=== PATIENT | male | born 1975 | race Caucasian/White ===

== ENCOUNTER 2025-06-11 18:27 | Emergency (ER) | payer OTHER, SELFPAY ==
[2025-06-11 18:57] VITALS: BP 128/100; PULSE 123; TEMP 36.7; O2SAT 98; BMI 39.2
--- NOTE | 2025-06-11 22:23 | XR_ITS ---
[facility] [place] [address] Patient Name: TOBIAS DÍAZ MRN: [id number] date: 1975 Sex: M Assigned Patient Location: ED.MAIN Current Patient Location: ED.MAIN Accession/Order Number: [id number] Exam Date: 06/11/2025 22:30 Report Date: 06/11/2025 22:47 At the request of: TAD BASSETT DO Procedure: XR lumbar spine 2-3V XR lumbar spine 2-3V 06/11/2025 10:39 PM SIGNS AND SYMPTOMS: ^back pain, history of fusion PROTOCOLS: Frontal and lateral graphs of the lumbar spine COMPARISON: None FINDINGS: The alignment, development and bony structures are normal. There is no fracture or destructive lesion. There is intervertebral fusion at L5-S1. There is mild disc height loss at L3-L4 and L4-L5.. Degenerative changes are noted in the sacroiliac joints. There is evidence of prior cholecystectomy in the right upper quadrant. XR/XR lumbar spine 2-3V IMPRESSION: No fracture or dislocation. There is fusion across the L5-S1 intervertebral disc space. Degenerative changes are noted as above. Impression dictated by: Jared Mckenzie M.D. 06/11/2025 10:47 PM Dictation Location: [place] [address] Electronically authenticated by: [id number] Y Date: 06/11/2025 22:47
[2025-06-11] MEDS: LIDOCAINE 5% PATCH 1 PATCH TOPICAL (22:40)
[2025-06-11] MEDS: KETOROLAC TROMETHAMINE 30 MG/ML VIAL IM (22:40)
[2025-06-11] MEDS: METHOCARBAMOL 500 MG TABLET PO (22:40)
[2025-06-11] MEDS: HYDROCODONE/ACET 5-325 MG TABLET 2 TAB PO (22:40)
[2025-06-11] MEDS: OXYCODONE HCL 5 MG TABLET PO (23:30)
--- NOTE | 2025-06-11 23:32 | ED_ITS ---
HPI HPI - General Adult General Chief complaint: Back Pain/Injury Stated complaint: Pain Left leg Time Seen by Provider: 06/11/25 21:57 Source: patient Source information: Pain in back, hip and left leg when changing positions. Increasing pain over the last week. Mode of arrival: walk-in Limitations: no limitations History of Present Illness HPI narrative: Patient is a 49-year-old male presenting to the emergency department for evaluation of left lower back pain. Patient states his symptoms began 2 weeks ago. He was initially treating the pain with naproxen, however over the last 24 hours, his pain has gotten worse. He states for the last 5 hours he has been in excruciating pain. He states the pain is located left lower part of his back and radiates down the entire leg into his toes. He states it feels like a sharp pain with numbness as tingling in the toes. He states he feels like it is a pinched nerve . He states that laying in certain positions makes the symptoms better, and standing up and walking exacerbates the pain. States he has a history of lumbar fusion 20 years ago. He denies any falls or injuries. No history of IV drug use. No fevers or chills. No loss of bladder/bowel function. No weakness in the lower extremities. No loss of sensation in the bilateral lower extremities. Related Data Previous Rx's ?Medication ?Instructions ?Recorded oxycodone-acetaminophen 5 mg-325 1 tab PO Q8H PRN pain #10 tabs 06/11/25 mg tablet Allergies Allergy/AdvReac Type Severity Reaction Status Date / Time No Known Drug Allergies Allergy Verified 06/11/25 22:29 Opioid HPI Opioid Management Most Recent Opioid Data: Last Pain Scale 8 Today, 22:40 Last MAR Pain Assessment Today, 22:40 Review of Systems ROS Status of ROS 10 or more systems reviewed and unremark able except as noted in history and below PFSH PFSH Social History Little interest or pleasure in doing things: not at all Feeling down, depressed, or hopeless: not at all Exam Narrative Exam Narrative: CONSTITUTIONAL: Patient is lying supine in the stretcher, slightly favoring the right side, appears to be in significant pain/distress SKIN: Was warm and dry, there are no overlying skin changes or rashes in the lower back. EYES: Sclerae white. EARS, NOSE, THROAT: Moist oral mucosa. RESPIRATORY: Nonlabored respirations. CARDIOVASCULAR: Normal rate and regular rhythm. 2+ DP pulses bilaterally GASTROINTESTINAL: Abdomen is nondistended. MUSCULOSKELETAL: Minimal tenderness to palpation throughout the paraspinal muscles of the left lower back. No midline L spine tenderness. Full ROM in the bilateral lower extremities. Postive straight leg raise test on the left. Positive crossed straight leg raise test. No peripheral edema. NEUROLOGIC: Patient is awake and alert. Equal strength and sensation to light touch in the bilateral lower extremities. Constitutional Vital Signs, click to edit/add: Last Vital Signs Temp 98.1 F 06/11/25 18:57 Pulse 123 H 06/11/25 18:57 Resp 18 06/11/25 18:57 BP 128/100 H 06/11/25 18:57 Pulse Ox 98 06/11/25 18:57 O2 Del Method Room Air 06/11/25 18:57 Course Vital Signs Vital signs: Vital Signs Temperature 98.1 F 06/11/25 18:57 Pulse Rate 123 H 06/11/25 18:57 Respiratory Rate 18 06/11/25 18:57 Blood Pressure 128/100 H 06/11/25 18:57 Pulse Oximetry 98 06/11/25 18:57 Oxygen Delivery Method Room Air 06/11/25 18:57 Temperature 98.1 F 06/11/25 18:57 Pulse Rate 123 H 06/11/25 18:57 Respiratory Rate 18 06/11/25 18:57 Blood Pressure 128/100 H 06/11/25 18:57 Pulse Oximetry 98 06/11/25 18:57 Oxygen Delivery Method Room Air 06/11/25 18:57 Medical Decision Making [facility] Narrative Medical decision making narrative: Patient is a 49-year-old male presenting to the emergency department with a 2- week history of left-sided lower back pain radiating down his left leg, acutely worsening over the last 5 hours. Patient's vital signs were significant for tachycardia, likely related to his acute pain. Otherwise, vitals were within normal limits. He is afebrile and hemodynamically stable. Examination as noted above, however was notable for positive straight leg raise test on the left. He has good strength, sensation, and distal pulses/perfusion in the lower extremities. Extremities are neurovascularly intact. Differential diagnose includes left-sided lumbar radiculopathy, musculoskeletal pain, and possibly issues with prior hardware from lumbar fusion 20 years. X- rays of the lumbar spine were obtained to evaluate the hardware. There are no findings that would be suggestive of cauda equina syndrome. No history of IV drug use, fevers, midline vertebral tenderness to suggest spinal epidural abscess. No recent injuries to suggest fracture or dislocations. No history of cancer to suggest metastatic disease. Patient will be treated symptomatically with IM ketorolac, oral Cushing, oral Robaxin, and lidocaine patch. X-rays of the lumbar spine independently reviewed and interpreted by myself and radiology demonstrated no fracture or dislocation. No hardware abnormalities. On reevaluation, patient states his pain has somewhat improved, though not completely resolved. He does feel comfortable being discharged home and following up with his doctor outpatient. I did give him a short course of Cushing 5 mg x 10 tablets for his acute pain. Return precautions are given including any new or concerning symptoms. Patient understands and agrees to the plan. FINAL IMPRESSION: #Acute left-sided lumbar radiculopathy DISPOSITION: Discharged home CONDITION: Good Imaging Data xray lumbar spine: Attestation: I personally reviewed and interpreted this imaging study as follows: Radiologist's impression: ITS Impressions Lumbar Spine X-Ray 06/11/25 22:23 IMPRESSION: No fracture or dislocation. There is fusion across the L5-S1 intervertebral disc space. Degenerative changes are noted as above. Impression dictated by: Jared Mckenzie M.D. 06/11/2025 10:47 PM [facility] Electronically authenticated by: [id number] Y Date: 06/11/2025 22:47 Discharge Plan Discharge Chief Complaint: Back Pain/Injury Clinical Impression: Lumbar radiculopathy Patient Disposition: Home, Self-Care Time of Disposition Decision: 23:20 Condition: Fair Mode of Transportation: Private Vehicle Prescriptions / Home Meds: New oxycodone-acetaminophen 5-325 mg tablet 1 tab PO Q8H PRN (Reason: pain) Qty: 10 0RF Print Language: Namibian Instructions: Lumbar Radiculopathy (ED) Referrals: GEO ROCHA [Primary Care Provider, Family Practice] - 1 week
== END 2025-06-11 23:30 | disposition home or self-care (01) ==
PROVIDERS: Emergency Provider Student in an Organized Health Care Education/Training Program; PCP Family Medicine
DX: M54.16 Radiculopathy, lumbar region (principal); Z98.1 Arthrodesis status
CPT/HCPCS: 72100; 96372; 99284; J1885

== ENCOUNTER 2025-06-30 10:48 | Emergency (ER) | payer OTHER, SELFPAY ==
--- OUTSIDE RECORDS SUMMARY | 2025-06-30 10:55 | XMS_ITS | Encounter Summary ---
Author Organization [facility] Address [address] [place] [address] Care Team Providers Care Master Fisher Name Role Phone Thony Farias MD Primary Care Provider [phone] James Ochoa MD Unavailable [phone] Thony Farias MD Unavailable [phone] Reason for Visit * Reason Comments New Med Request Encounter Details Date Type Department Care Team (Late st Contact Info) Description 01/29/2024 Refill [facility] [place] [facility] [address] [place] [address] Thony Farias MD [address] [facility] [address] [place], [place] [id number] (Fax) Mixed dyslipidemia ; Lumbar degenerative disc disease; Benign essential hypertension Social History Tobacco Use Types Packs/Day Years Used Date Smoking Tobacco: Never Smokeless Tobacco: Never Alcohol Use Standard Drinks/Week Comments Yes 2 (1 standard drink = 0.6 oz pure alcohol) Caffeine intake: 2-3 cups per day Humiliation, Afraid, Rape, and Kick questionnair e Answer Date Recorded Within the last year, have y ou been afraid of your partner or ex-partner? No 04/11/2023 Within the last year, have y ou been humiliated or emotionally abused in other ways by your partner or ex-partner? No Within the last year, have y ou been kicked, hit, slapped, or otherwise physically hurt by your partner or ex-partner? No 04/11/2023 Within the last year, have y ou been raped or forced to have any kind of sexual activity by your partner or ex-partner? No 04/11/2023 Social Connection and Isolation Panel [NHANES] A nswer Date Recorded In a typical week, how many times do you talk on the phone with family, friends, or neighbors? Twice a week 04/11/2023 How often do you get together with friends or re latives? Once a week 04/11/2023 How often do you attend worship or adventism serv ices? Never 04/11/2023 Do you belong to any clubs o r organizations such as worship groups, unions, fraternal or athletic groups, or school groups? No 04/11/2023 How often do you attend meet ings of the clubs or organizations you belong to? Never 04/11/2023 Are you , , di vorced, , never , or living with a partner? Never 04/11/2023 AUDIT-C Answer Date Recorded Q1: How often do you have a drink containing alc ohol? Monthly or less 09/19/2023 Q2: How many drinks containi ng alcohol do you have on a typical day when you are drinking? 1 or 2 09/19/2023 Q3: How often do you have si x or more drinks on one occasion? Monthly 09/19/2023 Overall Financial Resource Strain (CARDIA) Answe r Date Recorded How hard is it for you to pa y for the very basics like food, housing, medical care, and heating? Not hard at all 04/11/2023 [facility] Occupat ional Health - Occupational Stress Questionnaire Answer Date Recorded Do you feel stress - tense, restless, nervous, or anxious, or unable to sleep at night because your mind is troubled all the time - these days? Not at all 04/11/2023 Exercise Vital Sign Answer Date Recorde d On average, how many days pe r week do you engage in moderate to strenuous exercise (like a brisk walk)? 3 days 04/11/2023 On average, how many minutes do you engage in exercise at this level? 30 min 04/11/2023 Hunger Vital Sign Answer Date Recorded Within the past 12 months, y ou worried that your food would run out before you got the money to buy more. Never true 04/11/20 23 Within the past 12 months, t he food you bought just didn't last and you didn't have money to get more. Never true 04/11/2023 PRAPARE - Transportation Answer Date Re corded In the past 12 months, has l ack of transportation kept you from medical appointments or from getting medications? No 03/25 In the past 12 months, has l ack of transportation kept you from meetings, work, or from getting things needed for daily living? No 04/11/2023 Housing Stability Vital Sign Answer Steven e Recorded In the last 12 months, was t here a time when you were not able to pay the mortgage or rent on time? No 04/11/2023 In the last 12 months, how many places have you lived? 1 04/11/2023 In the last 12 months, was t here a time when you did not have a steady place to sleep or slept in a custodial (including now)? No 04/11/2023 Sex and Gender Information Value Date Recorded Sex Assigned at Not on file Legal Sex Male 7:01 PM EDT Gender Identity Not on file Sexual Orientation Not on file documented as of this encounter Plan of Treatment Upcoming Encounters Date Type Department Care Team (Late st Contact Info) Description 09/23/2025 4:00 PM EST Office Visit [facility] [address] [facility] [address] [place] [address] Thony Farias MD [address] [facility] [address] [place] [address] (Fax) documented as of this encounter Visit Diagnoses Diagnosis Mixed dyslipidemia Lumbar degenerative disc disease Benign essential hypertension Essential hypertension, benign documented in this encounter Care Teams Master Fisher Relationship Specialty Start Date End Date Thony Farias MD (Fax) PCP - General Family Medicine 04/06/23 James Ochoa MD [address] [employer] [address] [place] [address] PCP - [facility] [employer] [facility] 12/25/23 03/24/24 Thony Farias MD 112 [facility] 100 [place] [address] PCP - Medical [employer] 07/18/22 09/24/99 documented as of this encounter
--- OUTSIDE RECORDS SUMMARY | 2025-06-30 10:55 | XMS_ITS | Clinical Summary ---
Author Organization [facility] Address [address] [place] [address] Care Team Providers Care Cath Lab Name Role Phone Thony Farias MD Primary Care Provider [phone] Thony Farias MD Unavailable [phone] Allergies Active Allergy Reactions Criticality Noted Date Comments Atorvastatin 04/04/2023 Other Reaction(s): severe muscle pain Clomiphene 04/04/2023 Other Reaction(s): fatigue, bloating, nausea Tizanidine Hcl Nausea Only 04/04/2023 Medications Syringe/Needle, Disp, 23G X 1-1/2 3 ML miscIndications: Testosterone deficiency Use to inject 1 ml of testosterone cypionate 200mg/ml every 2 weeks. 6 each 3 10/23/19 25 Active albuterol HFA 90 mcg/act inhalerIndicatio ns:Influenza in adult Inhale 2 puffs every 4 (four) hours if needed for wheezing or shortness of breath 18 g 11/21/19 25 Active anastrozole (Arimidex) 1 MG chemo tabletIndication s:Lumbar degenerative disc disease Take 1 tablet (1 mg total) by mouth 3 (three) times a week. 36 tablet 1 03/26/20 25 025 Active losartan (Cozaar) 100 MG tabletIndication s:Benign essential hypertension Take 0.5 tablets (50 mg) by mouth Daily 03/26/20 25 025 Active fenofibrate micronized (Lofibra) 200 MG capsuleIndicatio ns:Mixed dyslipidemia Take 1 capsule (200 mg) by mouth in the morning. Take with meals. 90 capsule 1 03/26/20 25 025 Active metFORMIN XR (Glucophage-XR) 500 MG 24 hr tabletIndication s:Insulin resistance Take 4 tablets (2,000 mg) by mouth Daily Do not crush, chew, or split. 360 tablet 1 03/26/20 25 025 Active sildenafil (Viagra) 100 MG tabletIndication s:Erectile dysfunction due to diseases classified elsewhere Take 1 tablet (100 mg) by mouth Daily as needed for erectile dysfunction 30 tablet 03/26/20 25 Active Testosterone Cypionate 200 MG/ML solutionIndicati ons:Testosterone deficiency Injecting IM and alternating weeks;1 ml once per week, alternating with 2 ml once per week 18 mL 04/15/20 25 Active cyclobenzaprine (Flexeril) 10 MG tabletIndication s:Strain of lumbar region, initial encounter Take 1 tablet (10 mg) by mouth 3 (three) times a day as needed for muscle spasms 90 tablet 06/09/20 025 Active gabapentin (Neurontin) 600 MG tabletIndication s:Back pain of lumbar region with sciatica Take 1 tablet (600 mg) by mouth 3 (three) times a day 90 tablet 06/23/20 25 025 Active naproxen (Naprosyn) 500 MG tabletIndication s:Lumbar degenerative disc disease Take 1 tablet (500 mg) by mouth in the morning and 1 tablet (500 mg) before bedtime. 180 tablet 1 03/26/20 025 Discontinu ed(Therapy completed) ketorolac (Toradol) 10 MG tabletIndication s:Back pain of lumbar region with sciatica Take 1 tablet (10 mg) by mouth every 6 (six) hours if needed for moderate pain for up to 5 days Do not take with naproxen sodium 20 tablet 06/16/20 25 025 predniSONE (Deltasone) 20 MG tabletIndication s:Back pain of lumbar region with sciatica Take 2 tablets (40 mg) by mouth Daily for 5 days 10 tablet 06/16/20 25 025 gabapentin (Neurontin) 100 MG capsuleIndicatio ns:Back pain of lumbar region with sciatica Titrate from 2 to 4 capsules three times daily as needed for pain 100 capsule 09/22 025 Discontinu ed(Therapy completed) Active Problems Problem Noted Date Diagnosed Date Insulin resistance 10/12/2024 BMI 40.0-44.9, adult 04/05/2024 Right lower quadrant abdominal pain 08/21/2023 Ventral incisional hernia without gangrene 08/21 Right lower quadrant abdominal mass 08/21/2023 Adverse reaction to statin medication 04/04/2023 Benign essential hypertension 04/04/2023 Chronic fatigue 04/04/2023 Drug-induced myopathy 04/04/2023 Erectile dysfunction due to diseases classified elsewhere 04/04/2023 Hormone imbalance 04/04/2023 Hypertensive nephropathy 04/04/2023 Lumbar degenerative disc disease 04/04/2023 Microalbuminuria 04/04/2023 Mixed dyslipidemia 04/04/2023 Morbid obesity 04/04/2023 Stage 2 chronic kidney disease 04/04/2023 Testicular hypofunction 04/04/2023 Encounters Date Type Department Care Team Description 06/30/2025 Telephone [facility] [place] [facility] [address] [place] [address] [place] Care Coordination 06/16/2025 Telephone [facility] [address] [place] [address] Thony Farias MD 06/09/2025 Telephone [facility] [place] [facility] [address] [place] [address] [place], [place] Care Coordination 04/15/2025 4:30 PM EDT Office Visit [facility] [place] [facility] [address] [address] Thony Farias MD Testicular hypofunction; Testosterone deficiency; Hormone imbalance; Chronic fatigue 04/15/2025 Bamboo flowsheet [facility] [place] [facility] 112 [facility] 100 [place] [address] Thony Farias MD 04/15/2025 Travel 04/14/2025 Travel from Last 3 Months Family History Medical History Relation Name Comments Cancer Maternal Grandfather Jaron Melanoma Neg Hx Relation Name Status Comments Father Alive Maternal Grandfather Jaron Mother Alive Social History Tobacco Use Types Packs/Day Years Used Date Smoking Tobacco: Never Smokeless Tobacco: Never Tobacco Cessation:Counseling Given: Yes Alcohol Use Standard Drinks/Week Comments Yes 2 (1 standard drink = 0.6 oz pure alcohol) Caffeine intake: 2-3 cups per day B1300 Health Literacy Answer Date Recor ded How often do you need to hav e someone help you when you read instructions, pamphlets, or other written material from your doctor or pharmacy? Never 04/17/2024 Humiliation, Afraid, Rape, and Kick questionnair e [...] or ex-partner? No 04/11/2023 Social Connection and Isolat ion Panel [NHANES] Answer Date Recorded In a typical week, how many times do you talk on the phone with family, friends, or neighbors? Twice a week 04/17/2024 How often do you get togethe r with friends or relatives? Twice a week 04/17/2024 How often do you attend [facility] or faith services? Never 04/17/2024 Do you belong to any clubs o r organizations such as voodoo groups, unions, fraternal or athletic groups, or school groups? Yes 04/17/2024 How often do you attend meet ings of the clubs or organizations you belong to? More than 4 times per year 04/17/2024 Are you , , di vorced, , never , or living with a partner? Never 04/17/2024 AUDIT-C Answer Date Recorded Q1: How often do you have a drink containing alc ohol? 2-4 times a month 04/17/2024 Q2: How many drinks containi ng alcohol do you have on a typical day when you are drinking? 3 or 4 04/17/2024 Q3: How often do you have si x or more drinks on one occasion? Less than monthly 04/17/2024 Overall Financial Resource Strain (CARDIA) Answe r Date Recorded How hard is it for you to pa y for the very basics like food, housing, medical care, and heating? Not hard at all 04/17/2024 PHQ-2 Answer Date Recorded Patient Health Questionnaire-2 Score 0 03/26/2025 [facility] - Occupational Stress Questionnaire Answer Date Recorded Do you feel stress - tense, restless, nervous, or anxious, or unable to sleep at night because your mind is troubled all the time - these days? Only a little 04/17/2024 Exercise Vital Sign Answer Date Recorde d On average, how many days pe r week do you engage in moderate to strenuous exercise (like a brisk walk)? 3 days 04/17/2024 On average, how many minutes do you engage in exercise at this level? 30 min 04/17/2024 Hunger Vital Sign Answer Date Recorded Within the past 12 months, y ou worried that your food would run out before you got the money to buy more. Never true 04/17/20 Within the past 12 months, t he food you bought just didn't last and you didn't have money to get more. Never true 04/17/2024 PRAPARE - Transportation Answer Date Re corded In the past 12 months, has l ack of transportation kept you from medical appointments or from getting medications? No 03/26 In the past 12 months, has l ack of transportation kept you from meetings, work, or from getting things needed for daily living? No 04/17/2024 Housing Stability Vital Sign Answer Steven e [...] place to sleep or slept in a nursing home (including now)? No 04/11/2023 Housing Stability Vital Sign Answer Steven e Recorded In the last 12 months, was t here a time when you were not able to pay the mortgage or rent on time? No 04/17/2024 In the past 12 months, how m any times have you moved where you were living? 0 04/17/2024 At any time in the past 12 m [facility], were you homeless or living in a nursing home (including now)? No 04/17/2024 Sex and Gender Information Value Date Recorded Sex Assigned at Not on file Legal Sex Male 7:01 PM EDT Gender Identity Not on file Sexual Orientation Not on file Last Filed Vital Signs Vital Sign Reading Time Taken Comments Blood Pressure 120/78 03/26/2025 4:20 PM EDT Pulse 105 03/26/2025 4:20 PM EDT Temperature - - Respiratory Rate - - Oxygen Saturation 96% 03/26/2025 4:20 PM EDT Inhaled Oxygen Concentration - - Weight 145 kg (320 lb) 03/26/2025 4:20 PM EDT Height 188 cm (6' 2 ) 03/26/2025 4:20 PM EDT Body Mass Index 41.09 03/26/2025 4:20 PM EDT Plan of Treatment Upcoming Encounters Date Type Department Care Team (Late st Contact Info) Description 09/23/2025 4:00 PM EST Office Visit [facility] [address] [facility] 100 [place] [address] Thony Farias MD 112 [facility] 100 [place] [address] Health Maintenance Due Date Last Done Comments CT Colonography 1975 Colonoscopy 1975 Colorectal Cancer Screening 1975 FIT-DNA 1975 FIT 1975 FOBT 1975 Sigmoidoscopy 1975 Influenza Vaccine (#1) 2025 Procedures Procedure Name Priority Date/Time Associated Diagnosis Comments TESTOSTERONE, TOTAL, MALES (ADULT), IA Routine 06/20/2025 12:42 PM EDT Testicular hypofunction Chronic fatigue TESTOSTERONE, TOTAL, MALES (ADULT), IA Routine 04/14/2025 8:55 AM EDT Chronic fatigue Testosterone deficiency from Last 3 Months Results * (ABNORMAL) Testosterone (06/20/2025 12:42 PM EDT) Only the most recent of2 resultswithin the time period is included. TESTOSTERONE, TOTAL, MALES (ADULT), IA 855(H) 250 - 827 ng/dL [facility] Blood Venous blood specimen / Unknown 06/20/2025 12:42 PM EDT 06/20/2025 12:45 PM EDT Narrative [facility] - 06/21/2025 2:58 AM EDT PT INSURANCE WON'[place] PAY FOR [id number]. PT REFUSED FOR NOW. PATIENT REFUSED SOME TESTING; PATIENT ENCOURAGED TO RETURN. Resulting Agency Comment Performing Organization Information Site ID: QPT Name: [facility] Address: [address] [place] [address], [address] [place] [id number] Director: Man Beyer MD Thony Farias MD LAB BLOOD ORDERABLES Final R esult [facility] from Last 3 Months Insurance [employer] Care Teams Cath Lab Relationship Specialty Start Date End Date Thony Farias MD (Fax) PCP - General Family Medicine 04/06/23 Thony Farias MD [address] [place] [id number] PCP - Medical [employer] 07/18/22 09/24/99
--- OUTSIDE RECORDS SUMMARY | 2025-06-30 10:55 | XMS_ITS | Encounter Summary ---
Author Organization [facility] Address [address] [place] [address] Care Team Providers Care Tool Polishing Machine Operator Name Role Phone Thony Farias MD Primary Care Provider [phone] Thony Farias MD Unavailable [phone] Encounter Details Date Type Department Care Team (Late st Contact Info) Description 06/16/2025 Telephone [facility] [place] [address] Family Medicine [address] [facility] 100 [place] [address] Thony Farias MD 112 [facility] 100 [place] [address] Social History Tobacco Use Types Packs/Day Years [...] week 04/17/2024 How often do you attend chur or sabianism services? Never 04/17/2024 Do you belong to any clubs o r organizations such as jainism groups, unions, fraternal or athletic groups, or [...] Recorded Patient Health Questionnaire-2 Score 0 03/26/2025 [facility] of Occupat ional Health - Occupational Stress [...] money to buy more. Never true 04/17/20 24 Within the past 12 months, t he [...] place to sleep or slept in a alf (including now)? No 04/11/2023 Housing Stability Vital Sign Answer Tseven e Recorded In the last 12 months, was t here a time when you were not able to pay the mortgage or rent on time? No 04/17/2024 In the past 12 months, how m any times have you moved where you were living? 0 04/17/2024 At any time in the past 12 m ont, were you homeless or living in a alf (including now)? No 04/17/2024 Sex and Gender Information Value Date Recorded Sex Assigned at Not on file Legal Sex Male 7:01 PM EDT Gender Identity Not on file Sexual Orientation Not on file documented as of this encounter Miscellaneous Notes * Telephone Encounter - Catherine Francois - 06/16/2025 1:38 PM EDT Discussed instructions from Dr. Farias. Patient voiced understanding. * Telephone Encounter - Thony Farias MD - 06/16/2025 1:12 PM EDT December, I reviewed the emergency room note and the x-ray report. I have sent 3 prescriptions to drug [facility]. It is important for him to understand not to take Naprosyn/naproxen while on the ketorolac. The ketorolac has a 5 day limit. He can resume his Naprosyn afterwards. He should titrate the gabapentin to pain relief and/or side effects. * Telephone Encounter - Catherine Priscila - 06/16/2025 11:14 AM EDT Amarjit left a message, he was in the ER over the weekend. For a pinched nerve. He stated he was still having issues and a lot of pain. Looking for suggestions from Dr. Farias. documented in this encounter Plan of Treatment Upcoming Encounters Date Type Department Care Team (Late st Contact Info) Description 09/23/2025 4:00 PM EST Office Visit [facility] Family Medicine [address] [facility] [address] [place] [address] Thony Farias MD [address] [place] [facility] 100 [place] [address] documented as of this encounter Visit Diagnoses Diagnosis Back pain of lumbar region with sciatica- Primary documented in this encounter Care Teams Tool Polishing Machine Operator Relationship Specialty Start Date End Date Thony Farias MD PCP - General Family Medicine 04/06/23 Thony Farias MD [address] [place] [address] [address] PCP - Medical [place] [employer] 07/18/22 09/24/99 documented as of this encounter
--- OUTSIDE RECORDS SUMMARY | 2025-06-30 10:55 | XMS_ITS | Encounter Summary ---
Author Organization [facility] Address [address] [place] [address] Care Team Providers Care Spa Associate Name Role Phone Thony Farias MD Primary Care Provider [phone] Thony Farias MD Unavailable [phone] Reason for Visit * Reason Comments Med Refill Encounter Details Date Type Department Care Team (Late st Contact Info) Description 04/25/2024 Refill [facility] [place] [facility] Family Medicine [address] [place] [address] Thony Farias MD [address] [place], [place] [phone] (Fax) Benign essential hypertension Social History Tobacco Use [...] 04/17/2024 How often do you attend chur Incentive Targeting or episcopalian services? Never 04/17/2024 Do you belong to any clubs o r organizations such as methodist groups, unions, fraternal or athletic groups, or [...] and heating? Not hard at all 04/17/2024 [facility] [place] of Occupat ional Health - Occupational Stress [...] place to sleep or slept in a senior living (including now)? No 04/11/2023 Housing Stability Vital [...] were you homeless or living in a senior living (including now)? No 04/17/2024 Sex and Gender [...] Visit [facility] [place] [facility] 112 [facility] [address] [place] [address] Thony Farias MD 112 [facility] 100 [place] [address] documented as of this encounter Visit Diagnoses Diagnosis Benign essential hypertension Essential hypertension, benign documented in this encounter Care Teams Spa Associate Relationship Specialty Start Date End Date Thony Farias MD PCP - General Family Medicine 04/06/23 Thony Farias MD [address] [place] [address] PCP - Medical [place] [employer] 07/18/22 09/24/99 documented as of this encounter
--- OUTSIDE RECORDS SUMMARY | 2025-06-30 10:55 | XMS_ITS | Encounter Summary ---
Author Organization [facility] Address [address] [place] [address] Care Team Providers Care Hand Meat Salter Name Role Phone Thony Farias MD Primary Care Provider [phone] Thony Farias MD Unavailable [phone] Reason for Visit * Reason Onset Date Comments Care Coordination 06/30/2025 Encounter Details Date Type Department Care Team ([facility] Contact Info) Description 06/30/[address] [address] Medicine [address] [place] [phone] Meena Westbrook, ID Care Coordination Social History Tobacco Use Types Packs/Day Years [...] How often do you attend chur or orthodoxy services? Never 04/17/2024 Do you belong to any clubs o r organizations such as zoroastrianism groups, unions, fraternal or athletic groups, or [...] Recorded Patient Health Questionnaire-2 Score 0 03/26/2025 [facility] of Occupat ional Health - Occupational Stress [...] place to sleep or slept in a care home (including now)? No 04/11/2023 Housing Stability [...] any time in the past 12 m [facility], were you homeless or living in a care home (including now)? No 04/17/2024 Sex and Gender Information Value Date Recorded Sex Assigned at Not on file Legal Sex Male 7:01 PM EDT Gender Identity Not on file Sexual Orientation Not on file documented as of this encounter Miscellaneous Notes * Telephone Encounter - Meena Westbrook MA - 06/30/2025 9:42 AM EDT Pt called and left VM stating he was in ER for his back pain a few weeks ago and still not getting better despite tx from them and . He states he cannot sleep, can hardly walk or stand up. The schedule is really busy how do you want to proceed. documented in this encounter Plan of Treatment Upcoming Encounters Date Type Department Care Team (Late st Contact Info) Description 09/23/2025 4:00 PM EST Office Visit [facility] [place] [facility] 112 [facility] [address] [address] [place] [address] Thony Farias MD 112 [facility] [address] [place] [address] documented as of this encounter Visit Diagnoses Not on filedocumented in this encounter Care Teams Hand Meat Salter Relationship Specialty Start Date End Date Thony Farias MD PCP - General Family Medicine 04/06/23 Thony Farias MD 112 [facility] 100 [place] [address] PCP - Medical [place] [employer] 07/18/22 09/24/99 documented as of this encounter
--- OUTSIDE RECORDS SUMMARY | 2025-06-30 10:55 | XMS_ITS | Encounter Summary ---
Author Organization [facility] Address [address] [place] [address] Care Team Providers Care Surgical Rn Name Role Phone Thony Farias MD Primary Care Provider [phone] James Ochoa MD Unavailable [phone] Thony Farias MD Unavailable [phone] Encounter Details Date Type Department Care Team (Late st Contact Info) Description 09/04/2023 External Result Encounter [facility] External Department Unsolicited Riley Castillo MD [address] [address] Social History Tobacco Use Types Packs/Day Years [...] week 04/11/2023 How often do you attend orthodox or oriental orthodox serv ices? Never 04/11/2023 Do you belong to any clubs o r organizations such as orthodox groups, unions, fraternal or athletic groups, or school groups? No 04/11/2023 How often do you attend meet ings of the clubs or organizations you belong to? Never 04/11/2023 Are you , , di vorced, , never , or living with a partner? Never 04/11/2023 AUDIT-C Answer Date Recorded Q1: How often do you have a drink containing alc ohol? Monthly or less 09/08/2023 Q2: How many drinks containi ng alcohol do you have on a typical day when you are drinking? 1 or 2 09/08/2023 Q3: How often do you have si x or more drinks on one occasion? Monthly 09/08/2023 Overall Financial Resource Strain (CARDIA) Answe r Date Recorded How hard is it for you to pa y for the very basics like food, housing, medical care, and heating? Not hard at all 04/11/2023 [facility] [place] of Occupat ional Health - Occupational Stress [...] place to sleep or slept in a long term (including now)? No 04/11/2023 Sex and Gender Information Value Date Recorded Sex Assigned at Not on file Legal Sex Male 7:01 PM EDT Gender Identity Not on file Sexual Orientation Not on file COVID-19 Exposure Response Date Recorded In the last 10 days, have yo u been in contact with someone who was confirmed or suspected to have Coronavirus/COVID-19? No / Unsure 08/31/2023 9:50 AM EST documented as of this encounter Plan of Treatment Upcoming Encounters Date Type Department Care Team (Late st Contact Info) Description 09/23/2025 4:00 PM EST Office Visit [facility] Family Medicine 112 [facility] 100 [place] [address] Thony Farias MD 112 [facility] 100 [place] [address] documented as of this encounter Procedures Procedure Name Priority Date/Time Associated Diagnosis Comments ECG 12-LEAD 09/04/2023 4:10 PM EST documented in this encounter Results * ECG 12 lead (09/04/2023 4:10 PM EST) 09/04/2023 4:10 PM EST Narrative [facility] - 09/05/2023 9:45 AM EST [facility] [place] [address] [place] [id number] Electrocardiograph Report Signed Patient: Amarjit Deutsch MR#: [id number] : 1975 Acct:[id number] Age/Sex: 48 / M ADM Date: 09/04/23 Loc: PS Room: Type: REG CLI Attending Dr: Riley Castillo MD Ordering Provider: Riley Castillo MD Date of Service: 09/04/2308/17/1559 ECG/ECG 12 lead ECG: surgery 09/08 Copies to: Test Reason : Blood Pressure : / mmHG Vent. Rate : 101 BPM Atrial Rate : 101 BPM P-R Int : 162 ms QRS Dur : 102 ms QT Int : 356 ms P-R-T Axes : 038 021 050 degrees QTc Int : 461 ms Borderline sinus tachycardia Poor anterior R wave progression Otherwise normal ECG No previous ECGs available Confirmed by LUCIANO GIBBS MD ([id number]) on 09/04/2023 9:40:42 PM Referred By: UMA Electronically Signed By:LUCIANO GIBBS MD Transcribed By: MUS Signed By Luciano Gibbs MD [id number] Procedure Note Luciano Gibbs MD - 09/05/2023 [facility] [place] [address] [place] [address] Electrocardiograph Report Signed Patient: Amarjit Deutsch DMR#: [id number] : 1975Acct:[id number] Age/Sex: 48 / MADM Date: 09/04/23 Loc: PS Room:Type: REG CLI Attending Dr: Riley Castillo MD Ordering Provider: Riley Castillo MD Date of Service: 09/04/2308/17/1559 ECG/ECG 12 lead ECG: surgery 09/08 Copies to: Test Reason : Blood Pressure : / mmHG Vent. Rate : 101 BPM Atrial Rate : 101 BPM P-R Int : 162 ms QRS Dur : 102 ms QT Int : 356 ms P-R-T Axes : 038 021 050 degrees QTc Int : 461 ms Borderline sinus tachycardia Poor anterior R wave progression Otherwise normal ECG No previous ECGs available Confirmed by LUCIANO GIBBS MD ([id number]) on 09/04/2023 9:40:42 PM Referred By: UMA Electronically Signed By:LUCIANO GOINS Transcribed By: MUS Signed By Luciano Gibbs [id number] us Riley Abdullahi MD ECG ORDERABLES Final Result [facility] [address] [place] [address], documented in this encounter Visit Diagnoses Not on filedocumented in this encounter Care Teams Surgical Rn Relationship Specialty Start Date End Date Thony Farias MD PCP - General Family Medicine 04/06/23 James Ochoa MD [address] [employer] [address] [place] [address] PCP - [facility] [place] HAMPER MAKER MACHINE 12/25/23 03/24/24 Thony Farias MD [address] [place] [address] PCP - Medical [place] [employer] 07/18/22 09/24/99 documented as of this encounter
--- OUTSIDE RECORDS SUMMARY | 2025-06-30 10:55 | XMS_ITS | Clinical Summary ---
Author Organization [facility] tem Address [id number] [address] [place] [address] Care Team Providers Care Wind Plant Manager Name Role Phone No Pcp, No Pcp Primary Care Provider Unavailabl e Allergies No known active allergies Medications No known medications Social History Tobacco Use Types Packs/Day Years Used Date Smoking Tobacco: Never Alcohol Use Standard Drinks/Week Comments No 0 (1 standard drink = 0.6 oz pur e alcohol) Childcare Answer Date Recorded Childcare Unknown 03/07/2019 Employment Answer Date Recorded Employment Unknown 03/07/2019 Sex and Gender Information Value Date Recorded Sex Assigned at Not on file Legal Sex Male 6:29 AM EDT Gender Identity Not on file Sexual Orientation Not on file Last Filed Vital Signs Vital Sign Reading Time Taken Comments Blood Pressure 150/92 05/31/2017 6:35 AM EDT Pulse 89 05/31/2017 6:35 AM EDT Temperature 37 C (98.6 F) 05/31/2017 6:35 AM EDT Respiratory Rate 20 05/31/2017 6:35 AM EDT Oxygen Saturation 98% 05/31/2017 6:35 AM EDT Inhaled Oxygen Concentration - - Weight 131.5 kg (290 lb) 05/31/2017 6:36 AM EDT Height 188 cm (6' 2 ) 05/31/2017 6:36 AM EDT Body Mass Index 37.23 05/31/2017 6:36 AM EDT Plan of Treatment Not on file Medical Devices Not on file Care Teams Wind Plant Manager Relationship Specialty Start Date End Date No Pcp, [place] [address] PCP - General Family Medicine 05/31/17
[2025-06-30 10:56] VITALS: BP 138/78; PULSE 104; TEMP 37.1; O2SAT 96; BMI 39.8
--- NOTE | 2025-06-30 11:38 | CT_ITS ---
The [address] [address] Patient Name: TOBIAS DÍAZ MRN: [id number] date: 1975 Sex: M Assigned Patient Location: ER Current Patient Location: ER Accession/Order Number: [id number] Exam Date: 06/30/2025 12:00 Report Date: 06/30/2025 12:59 At the request of: MARLYN MOODY Procedure: CT lumbar spine wo con CT lumbar spine wo con 06/30/2025 12:18 PM History:Low back pain radiating to left lower extremity for 2 weeks. TECHNIQUE: Multi detector CT axial slices of the lumbar spine were obtained without IV contrast. Volumetric acquisition sagittal, coronal, and 3-D reconstructions were performed and reviewed on a separate workstation. CT was performed with one or more of the following dose reduction techniques: Automated exposure control, adjustment of the mA and/or kV according to patient size, or use of iterative reconstruction technique. COMPARISON: Lumbar spine 06/11/2025 FINDINGS: There is preservation of the vertebral body heights and intervertebral discs. No fractures or dislocations are seen. The alignment of the lumbar spine is normal. The paraspinous soft tissues are within normal limits. The visualized lung parenchyma is unremarkable. The visualized abdominal and pelvic viscera is unremarkable. Postsurgical changes L5-S1 with disc spacers are present. No hardware complication is seen. No fracture. Vertebral body heights appear maintained. Scattered endplate and facet joint degenerative change with mild disc space narrowing L3-L4 and L4-L5. Transverse processes appear intact. SI joints demonstrate degenerative change. CT/CT lumbar spine wo con IMPRESSION: No acute bony process. Endplate and facet joint degenerative changes with mild disc space narrowing L3-L4 and L4-L5. Impression dictated by: Hunter Dougherty Jr., D.O. 06/30/2025 12:59 PM Dictation Location: [place] [address] Electronically authenticated by: [id number] Y Date: 06/30/2025 12:59
--- NOTE | 2025-06-30 11:39 | ED_ITS ---
HPI HPI - Back Pain/Injury General Chief Complaint: Extremity Problem, Nontraumatic Stated Complaint: LEG PAIN Time Seen by Provider: 06/30/25 11:03 History of Present Illness HPI Narrative: cc - low back pain Pt presents with increased pain across the low back that began about 3 weeks ago but has steadily worsened over the weekend. Pt had L5-S1 fusion many years ago and denied any new injury or any activity that might have caused the pain. He denied large weight gain in the last 6 months, no MVA or fall, no recent lifting, painting, other activity to worsen the pain. No fever or chills. No bowel or bladder dysfunction. He has been taking gabapentin for the pain. He does admit to some tingling/decreased sensation in the left foot and I feel like my left foot is weak and like it is going to give out when the pain gets worse . Described as a shooting tightness across the low back Related Data Previous Rx's ?Medication ?Instructions ?Recorded oxycodone-acetaminophen 5 mg-325 1 tab PO Q8H PRN pain #10 tabs 06/11/25 mg tablet methocarbamol 750 mg tablet 750 mg PO Q6H PRN pain #30 tabs 06/30/25 methylprednisolone 4 mg tablets in 4 mg PO DAILY #21 e a 06/30/25 a dose pack (Medrol (Jose)) nabumetone 750 mg tablet 750 mg PO BID PRN pain #14 t abs 06/30/25 Allergies Allergy/AdvReac Type Severity Reaction Status Date / Time No Known Drug Allergies Allergy Verified 06/11/25 22:29 Opioid HPI Opioid Management Most Recent Opioid Data: Last Pain Scale 8 Today, 11:57 Last MAR Pain Assessment Today, 11:57 PFSH PFSH Social History Little interest or pleasure in doing things: not at all Feeling down, depressed, or hopeless: not at all Exam Narrative Exam Narrative: General:Alert, no acute distress, patient resting comfortably Skin:warm, intact, no pallor noted Head:Normocephalic, atraumatic Eye:Normal conjunctiva Respiratory:No acute distress Back:inspection of the back shows no obvious deformity, no swelling, no ecchymosis, contusion, abrasion, swelling, erythema, fluctuance or induration.Tenderness noted throughout the paralumbar soft tissue as well as midline bony vertebral tenderness through the L-spine. The patient's midline lumbar scar is without erythema, warmth, swelling or dehiscence.. Straight leg raise is positive bilaterally. No CVA tenderness noted bilaterally. Musculoskeletal:No deformity noted to bilateral lower extremities. no cyanosis or mottling noted. normal pulses at DP and PT 2+ bilaterally and symmetrically. Normal 5/5 strength at ankles with dorsiflexion and plantar flexion. Patient is able to ambulate but with pain. Normal sensation noted to both lower extremities. Neurological: AAOx4, normal sensory and motor observed.L5-S1 reflexes intact symmetrically.DTR 2+ at patellar bilaterally. Psychiatric:Cooperative and interactive. Constitutional Vital Signs, click to edit/add: Last Vital Signs Temp 98.7 F 06/30/25 10:56 Pulse 104 H 06/30/25 10:56 Resp 18 06/30/25 10:56 BP 138/78 06/30/25 10:56 Pulse Ox 96 06/30/25 10:56 O2 Del Method Room Air 06/30/25 10:56 Course Vital Signs Vital signs: Vital Signs Temperature 98.7 F 06/30/25 10:56 Pulse Rate 104 H 06/30/25 10:56 Respiratory Rate 18 06/30/25 10:56 Blood Pressure 138/78 06/30/25 10:56 Pulse Oximetry 96 06/30/25 10:56 Oxygen Delivery Method Room Air 06/30/25 10:56 Temperature 98.7 F 06/30/25 10:56 Pulse Rate 104 H 06/30/25 10:56 Respiratory Rate 18 06/30/25 10:56 Blood Pressure 138/78 06/30/25 10:56 Pulse Oximetry 96 06/30/25 10:56 Oxygen Delivery Method Room Air 06/30/25 10:56 MDM - Back Pain/Injury MDM Narrative Medical decision making narrative: The patient was given IM Toradol and IM Solu-Medrol as well as oral Robaxin. He was sent for CT scanning of the lumbar spine. According to the radiologist's report, the patient has no acute bony process. There is endplate and facet joint degenerative changes with mild disc space narrowing L3-L4 and L4-L5. Postsurgical changes L5-S1 with disc spacers are present but no hardware complication is seen and no fracture. Vertebral body heights appear maintained. SI joints demonstrate degenerative change. Imaging Data ct lumbar spine: Radiologist's impression: ITS Impressions Lumbar Spine CT 06/30/25 11:38 IMPRESSION: No acute bony process. Endplate and facet joint degenerative changes with mild disc space narrowing L3-L4 and L4-L5. Impression dictated by: Hunter Dougherty Jr., D.O. 06/30/2025 12:59 PM Dictation Location: [place] [address] Electronically authenticated by: [id number] Y Date: 06/30/2025 12:59 Discharge Plan Discharge Chief Complaint: Extremity Problem, Nontraumatic Clinical Impression: Lumbar radiculopathy, Low back pain Patient Disposition: Home, Self-Care Time of Disposition Decision: 13:40 Prescriptions / Home Meds: New nabumetone 750 mg tablet 750 mg PO BID PRN (Reason: pain) Qty: 14 0RF methocarbamol 750 mg tablet 750 mg PO Q6H PRN (Reason: pain) Qty: 30 0RF methylprednisolone [Medrol (Jose)] 4 mg tablets,dose pack 4 mg PO DAILY Qty: 21 0RF No Action oxycodone-acetaminophen 5-325 mg tablet 1 tab PO Q8H PRN (Reason: pain) Qty: 10 0RF Print Language: Azerbaijani Instructions: Acute Low Back Pain (ED), Lumbar Radiculopathy (ED) Referrals: GEO ROCHA [Primary Care Provider, Family Practice] - 1 week
[2025-06-30] MEDS: KETOROLAC TROMETHAMINE 60 MG/2 ML VIAL IM (11:57)
[2025-06-30] MEDS: METHOCARBAMOL 500 MG TABLET 1000 MG PO (11:57)
[2025-06-30] MEDS: METHYLPREDNISOLONE SOD SUCC PF 125 MG/2 ML VIAL IM (11:58)
== END 2025-06-30 14:36 | disposition home or self-care (01) ==
PROVIDERS: Emergency Provider Emergency Medicine; PCP Family Medicine
DX: M54.16 Radiculopathy, lumbar region (principal); M54.50 Low back pain, unspecified; Z98.1 Arthrodesis status
CPT/HCPCS: 72131; 76376; 96372; 99284; J1885; J2919